=== PATIENT | male | born 1955 | race Caucasian/White ===

== ENCOUNTER 2021-11-25 07:49 | Outpatient (CLI) | payer MEDICARE, SELFPAY ==
--- NOTE | 2021-11-25 08:01 | ECG_ITS ---
Measurements Intervals [place] Rate: 65 P: -12 WA: 157 QRS: 5 QRSD: 106 T: 41 QT: 394 QTc: 411 Interpretive Statements SINUS RHYTHM LOW QRS VOLTAGE IN PRECORDIAL LEADS [QRS DEFLECTION < 1.0 mV IN CHEST LEADS] POSSIBLE RIGHT VENTRICULAR CONDUCTION DELAY [RSR (QR) IN V1/V2] NO PREVIOUS ECG AVAILABLE FOR COMPARISON Electronically Signed On 11-25-2021 18:16:51 CDT by Nicole Rodriguez M.D.
== END 2021-11-25 07:50 | disposition home or self-care (01) ==
LOC: ANHSURGERY 07:54
PROVIDERS: Visit Provider Urology
DX: Z01.810 Encounter for preprocedural cardiovascular examination (principal); I10 Essential (primary) hypertension
CPT/HCPCS: 93005

== ENCOUNTER 2021-11-26 01:26 | Day surgery (SDC) | payer MEDICARE, SELFPAY ==
--- NOTE | 2021-11-23 12:35 | PC.NURSE ---
Report to the Outpatient Waiting Room, entrance under the green pavilion located off [facility], at time _0730 on date __11/26/21 . OR Time: _929 . - You and your visitor will be asked a series of questions to screen for COVID 19 for your protection. - Only one visitor is allowed at this time. - The patient visitor is requested to leave or wait in car when not with patient. - A mask is required within the hospital. Patients may have clear liquids (water, carbonated beverages, clear teas, apple juice) until 3 hours prior to surgery with a maximum of 20 ounces. - No food from midnight until time of surgery - Infants may have breast milk until 4 hours before surgery, infant formula 6 hours prior to surgery. - Children will be allowed to drink immediately following surgery. If applicable, please bring a bottle or sippy cup to assist with drinking. Juice, water, soda, and popsicles are readily available. For infants on formula, please bring formula the day of surgery. Pacifiers are allowed. Take the following medications with a SIP of water the morning of surgery: __CARVEDILOL Medications to discontinue per physician ___PLAVIX/ASPIRIN 7 DAYS PRE OP. ALL VITAMINS 3 DAYS PRE OP Date to take last dosePATIENT STATES PLAVIX AND ASPIRIN__11/19/21. VITAMIN 11/23/21 Please no make-up, nail bulgar[place], hairspray, perfume, deodorant, or body powder the day of surgery. No jewelry (including any body piercings) or valuables the day of surgery, leave them at home. Please take a shower or bath the night before, or the morning of, surgery with an antibacterial soap. Wear comfortable, loose fitting clothing. Children are encouraged to wear pajamas. - Jewelry must be removed prior to entering the operating room. Rings and piercings that are not removed may be cut off. - The hospital will not accept responsibility for valuables. - Please leave all valuables, including medications, at home the day of surgery. If you are going home after surgery, a licensed otr flatbed driver must drive you home. - NO public transportation without another adult. - We recommend that an adult stay with you for 24 hours following discharge. - We also recommend that you do not drive, make important decision, drink alcoholic beverages, or take any drugs that were not prescribed by your health care provider for at least 24 hours after your discharge time. For Pediatric surgeries, we recommend two adults accompany the child home (only one inside the building at this time). Follow any additional instructions given to you from your surgeon. If you or anyone in your household have experienced Covid symptoms in the past week, please notify your surgeon or the nurse liaison at the phone number below for possible testing. Telephone instructions given to PATIENT and asked if any additional questions and then verbalized understanding. Patient advised to call surgeon office or pre surgery nurse liaison [phone] if any additional questions.
[2021-11-23 12:42] VITALS: BMI 37.5
--- NOTE | 2021-11-25 13:55 | WPDANESEPPF ---
Anes - Initial Pre Proc Eval Procedure: Operation Date: 11/26/21 09:00 Proposed Procedures p Right Spermatocelectomy - Michael Baca MD Date/Time: 11/25/21 13:55 Surgeon: Michael Baca MD Pre Op Diagnosis: right spermatocele Patient Data Age: 66 Gender: M Height: 1.85 m Weight: 129.3 kg Allergies Allergy/AdvReac Type Severity Reaction Status Date / Time No Known Allergies Allergy Verified 11/23/21 12:22 Home Medications Medication Instructions Recorded Confirmed Type aspirin 81 mg tablet,delayed 81 mg PO DAILY 04/02/19 11/23/21 History release (Adult Low Dose Aspirin) atorvastatin 40 mg tablet 40 mg PO DAILY 04/02/19 11/23/21 History carvedilol 3.125 mg tablet 3.125 mg PO BID 04/02/19 11/23/21 History lisinopril 5 mg tablet 5 mg PO DAILY 04/02/19 11/23/21 History clopidogrel 75 mg tablet (Plavix) 75 mg PO DAILY #30 tabs 03/25/21 11/23/21 Rx acetaminophen 500 mg tablet 1,000 mg PO BID PRN Pain 11/23/21 11/23/21 History pyridoxine (vitamin B6) 100 mg 100 mg PO DAILY 11/23/21 11/23/21 History tablet sildenafil (pulm.hypertension) 20 20 mg PO PRN PRN Erectile 11/23/21 11/23/21 History mg tablet Dysfunction Patient hx anesthesia problems: none Family hx anesthesia problems: none Results Review: All pre-operative results and documents have been reviewed as part of the pre-operative evaluation. [facility] Past Medical History Medical History (Updated 11/25/21 @ 13:56 by Leighton Starkey DO) Coronary artery disease involving [place] coronary artery of [place] heart Essential (primary) hypertension History of heart attack PMR (polymyalgia rheumatica) Surgical History Surgical History (Updated 11/25/21 @ 13:56 by Leighton Starkey DO) History of heart artery stent x2, 2014 Family History Family History Father Hypertension, Onset Age: 92 Family history of arthritis, Onset Age: 92 Family history of hearing loss, Onset Age: 92 Mother Hypertension, Onset Age: 92 Cerebrovascular accident, Onset Age: 92 Family history of arthritis, Onset Age: 92 Family history of Alzheimer's disease, Onset Age: 92 Family history of hearing loss, Onset Age: 92 Sibling Family history of malignant neoplasm of kidney, Onset Age: 70 Social History Social History Smoking status: Never smoker Alcohol intake: current Drinks per week: 6 Living arrangements: with family Spiritual care concerns: No Anes - Eval Final PreProcedure Day of Procedure 11/25/21 13:55 Patient weight: obese Heart: regular rate and rhythm Lungs: clear to auscultation Airway: Mallampati scale class II Neurological: alert and oriented Last oral intake: >/= 8 hours ASA classification: III Emergent: no Anesthetic plan: proceed Anesthesia type and monitoring: general LMA and standard monitoring Results Review: All pre-operative results and documents have been reviewed as part of the pre-operative evaluation. Informed Consent: The patient's anesthetic plan and its attendant risks and benefits were discussed with the patient/family/POA. Questions were solicited and answers provided to the satisfaction of the patient/family/POA.
[2021-11-26] VITALS (9 sets, daily range): BP systolic 144–173; BP diastolic 78–97; PULSE 57–74; RESP 12–16; TEMP 36.1–36.9; O2SAT 97–100
--- NOTE | 2021-11-26 06:48 | WPDHPUPDATE1 ---
History and Physical Update Update Date/Time: 11/26/21 06:48 History and Physical has been reviewed, including an updated exam of the patient. There are NO changes in the patient's condition. Risks, benefits, and alternatives have been discussed and questions answered. Patient agrees to proceed with procedure.
[2021-11-26] MEDS: LACTATED RINGERS 1,000 ML 30 ML IV CONT (08:14)
--- NOTE | 2021-11-26 10:07 | W.PM.PROC2 ---
Procedure Note - Detailed Date of Procedure 11/26/21 Pre-op Diagnosis Right spermatocele Post-op Diagnosis Same Procedure Performed Right spermatocelectomy Surgeon Michael Baca MD Description of Procedure The patient was brought to the operative suite where he was prepped and draped in routine sterile fashion while in a supine position after the uneventful induction of a general LMA anesthetic. An incision was made in the median raphe of the scrotum and dissection was carried into the right tunica vaginalis. There is no appreciable hydrocele but a large right spermatocele arising from the epididymis. This spermatocele is dissected from the spermatic cord and testicle to its origin from the epididymis. It is transected at its origin with care taken to avoid any injury to the testicle or epididymis. Care was taken to avoid compromise to vessels in the spermatic cord. The testicle was examined and found to be both visibly and palpably normal. The testicle was restore returned to an orthotopic positioned. The dartos muscle was closed with a running 4-0 chromic and the skin was likewise closed with a running 4-0 chromic. Estimated blood loss throughout this procedure was 10cc. Patient tolerated the procedure well and was taken to the recovery room in good condition. Packing No Pathology None sent Complications No immediate complications Condition Stable Disposition PACU
[2021-11-26] MEDS: fentaNYL CITRATE INJ (*CRX) 100 MCG/2 ML VIAL 25 MCG IV PUSH ×4 (10:46→10:56)
[2021-11-26] MEDS: oxyCODONE HCL (*CRX) 5 MG TAB IR PO (11:34)
--- NOTE | 2021-11-26 12:26 | SUR.PHASEII ---
1210- Spoke with Dr. Baca regarding patient's plavix & ASA. Dr. Baca ordered patient to hold ASA until tomorrow 11/27/21/ and to hold plavix until Tuesday11/30/21. Attempted to call patient but he did not answer, voicemail was left.
== END 2021-11-26 12:10 | disposition home or self-care (01) ==
PROVIDERS: Visit Provider Urology
PROC: (CPT 54840; principal; 2021-11-26 09:00)
DX: N43.41 Spermatocele of epididymis, single (principal); N52.01 Erectile dysfunction due to arterial insufficiency; Z79.82 Long term (current) use of aspirin; I25.10 Atherosclerotic heart disease of native coronary artery without angina pectoris; I10 Essential (primary) hypertension; I25.2 Old myocardial infarction; M35.3 Polymyalgia rheumatica; E66.9 Obesity, unspecified; Z68.37 Body mass index [BMI] 37.0-37.9, adult
CPT/HCPCS: 54840; 88304; 93005; A9270; J1100; J2405; J2704; J3010; J7120

== ENCOUNTER 2022-03-22 11:48 | Outpatient (CLI) | payer MEDICARE, SELFPAY ==
[2022-03-22 19:31] LABS: Erythrocyte Sedimentation Rate 7 mm/hr (0-20)
[2022-03-25 21:19] LABS: CRP, High Sensitivity 2.8 mg/L (***)
== END 2022-03-22 11:49 | disposition home or self-care (01) ==
LOC: ANHGOSHLAB 11:52
PROVIDERS: Visit Provider Family Medicine
DX: M19.90 Unspecified osteoarthritis, unspecified site (principal)
CPT/HCPCS: 36415; 85652; 86141

== ENCOUNTER 2022-09-28 08:04 | Outpatient (CLI) | payer MEDICARE, SELFPAY ==
[2022-09-28 16:53] LABS: Alanine Aminotransferase 30 U/L (6-50); Albumin Level 3.9 g/dL (3.5-5.1); Alkaline Phosphatase 40 U/L (38-126); Anion Gap 5 mmol/L (8-16); Aspartate Amino Transferase 64 U/L (17-59); Bilirubin,Total 0.6 mg/dL (0.2-1.3); Blood Urea Nitrogen 17 mg/dL (9-20); Calcium 8.8 mg/dL (8.4-10.2); Carbon Dioxide 32 mmol/L (22-30); Chloride 101 mmol/L (98-107); Cholesterol 108 mg/dL (0-200); Estimated Glomerular Filt Rate > 60; Glucose 104 mg/dL (65-110); HDL Direct 40 mg/dL; Potassium 4.5 mmol/L (3.4-5.0); Sodium 138 mmol/L (137-145); Triglycerides 59 mg/dL (<150)
[2022-09-28 16:55] LABS: Basophils Absolute Auto 0.1 K/mm3 (0.0-0.1); Basophils Percent Auto 0.7 % (0.2-1.2); Eosinophils Absolute Auto 0.3 K/mm3 (0-0.3); Eosinophils Percent Auto 4.6 % (0-4.4); Hematocrit 44.9 % (42.0-52.0); Hemoglobin 14.3 g/dL (14.0-18.0); Immature Granulocyte Absolute 0.02 K/mm3 (0.00-0.031); Immature Granulocyte Percent A 0.3 % (0-0.5); Lymphocytes Absolute Auto 1.43 K/mm3 (0.9-3.2); Lymphocytes Percent Auto 20.4 % (18.3-44.2); Mean Corpuscular HGB Conc 31.8 g/dl (32-36); Mean Corpuscular Volume 100.4 fl (80-100); Mean Platelet Volume 9.9 fl (7.4-10.4); Monocytes Absolute Auto 0.6 K/mm3 (0.1-0.6); Monocytes Percent Auto 8.8 % (2.6-8.5); Neutrophils Absolute Auto 4.6 K/mm3 (1.3-6.7); Neutrophils Percent Auto 65.2 % (45.5-73.1); Platelet Count Result 305 k/mm3 (150-375); Red Blood Count 4.47 M/mm3 (4.6-6.20); Red Cell Distribution Width 13.6 % (11.5-14.5)
[2022-09-28 17:05] LABS: LDL Cholesterol Direct 53 mg/dL
[2022-09-28 17:24] LABS: Prostate Specific Antigen 0.5 ng/mL (< OR = 4.0)
[2022-09-28 18:49] LABS: Hemoglobin A1C 5.4 % (<5.7)
== END 2022-09-28 08:05 | disposition home or self-care (01) ==
PROVIDERS: Referring Provider Specialist; Visit Provider Family Medicine
DX: I10 Essential (primary) hypertension (principal); R79.89 Other specified abnormal findings of blood chemistry; Z13.220 Encounter for screening for lipoid disorders; Z12.5 Encounter for screening for malignant neoplasm of prostate; R73.03 Prediabetes
CPT/HCPCS: 36415; 80048; 80061; 80076; 83036; 84153; 84443; 85025; G0103

== ENCOUNTER 2022-10-06 14:28 | Outpatient (CLI) | payer MEDICARE, SELFPAY ==
--- NOTE | ~2022-10-06 | CT_ITS ---
Non-contrast CT scan of the Abdomen and Pelvis Clinical indication: Left ureteral stone Technique: 2.5 mm axial scans were obtained through the abdomen and pelvis without intravenous or or al contrast. Dose reduction technique was used on this scan by utilizing automated exposure control a nd iterative reconstruction technique. The dose-length product (DLP) was 1087.89 mGy-cm. Findings: Images through the lung bases reveal minimal right basilar atelectatic change. 4 mm mid left ureteral stone present (axial image 162), without hydronephrosis. No right renal or rig ht ureteral stone. No right hydronephrosis. The liver, spleen, pancreas, and adrenals appear normal. Cholecystectomy clips are present. There are atherosclerotic calcifications of the aorta. There is no evidence of bowel obstruction. Images through the pelvis were performed. There is no evidence of ascites or lymphadenopathy. Urinary bladder unremarkable. Prostate gland and seminal vesicles are unremarkable. Impression: 4 mm mid left ureteral stone. No hydronephrosis. Reviewed, dictated and finalized at [facility]. Impression: 4 mm mid left ureteral stone. No hydronephrosis.
== END 2022-10-06 14:29 | disposition home or self-care (01) ==
PROVIDERS: PCP Family Medicine; Visit Provider Urology
DX: N20.1 Calculus of ureter (principal)
CPT/HCPCS: 74176

== ENCOUNTER 2022-10-14 00:42 | Day surgery (SDC) | payer MEDICARE, SELFPAY ==
--- NOTE | 2022-10-11 07:43 | PM.HPGS ---
History of Present Illness History of Present Illness Consent: Risks, benefits, and alternatives have been discussed and questions answered. Patient agrees to proceed with procedure. Chief complaint: left ureteral stone Narrative: Sebastian Garcia is a 67 year old male on dual antiplatelet therapy for cardiac reasons who is had intermittent left flank pain and hematuria. Imaging demonstrates a small 2-3 mm left renal pelvic stone. He continues to have pain and persistence of the stone. After discussion of options he is elected to proceed with left ureteroscopy with stone extraction. He is aware the risk of the procedure including, but not limited to, hematuria, need for additional procedures, placement of a stent and ureteral injury. Review of Systems Review of Systems: All systems reviewed & are unremarkable except as noted in HPI and below PMFSH Past Medical History Medical History BMI 38.0-38.9,adult Coronary artery disease involving [place] coronary artery of [place] heart Essential (primary) hypertension History of heart attack Joint inflammation Kidney stone PMR (polymyalgia rheumatica) Surgical History Surgical History History of heart artery stent x2, 2015 Family History Family History Father Hypertension, Onset Age: 92 Family history of arthritis, Onset Age: 92 Family history of hearing loss, Onset Age: 92 Mother Hypertension, Onset Age: 92 Cerebrovascular accident, Onset Age: 92 Family history of arthritis, Onset Age: 92 Family history of Alzheimer's disease, Onset Age: 92 Family history of hearing loss, Onset Age: 92 Sibling Family history of malignant neoplasm of kidney, Onset Age: 70 Social History Social History Smoking status: Never smoker Alcohol intake: current Drinks per week: 6 Substance use: never Lack of Transportation: No Lack of Food: Never True Current Housing: I Have Housing Concerned About Future Housing: No Difficulty Paying Gas/Electric Bills: No Difficulty Paying for Meds: No Currently Unemployed: No Education: Associate Degree Living arrangements: with family Spiritual care concerns: No Meds Home Medications and Allergies Home Medications Medication Instructions Recorded Confirmed Type aspirin 81 mg tablet,delayed 81 mg PO DAILY 04/02/19 08/02/22 History release (Adult Low Dose Aspirin) atorvastatin 40 mg tablet 40 mg PO DAILY 04/02/19 08/02/22 History carvedilol 3.125 mg tablet 3.125 mg PO BID 04/02/19 08/02/22 History clopidogrel 75 mg tablet (Plavix) 75 mg PO DAILY #30 tabs 03/25/21 08/02/22 Rx acetaminophen 500 mg tablet 1,000 mg PO BID PRN Pain 11/23/21 08/02/22 History pyridoxine (vitamin B6) 100 mg 100 mg PO DAILY 11/23/21 08/02/22 History tablet sildenafil (pulm.hypertension) 20 20 mg PO PRN PRN Erectile 11/23/21 08/02/22 History mg tablet Dysfunction losartan 50 mg tablet 50 mg PO DAILY #30 tabs 08/02/22 08/02/22 Rx Allergies Allergy/AdvReac Type Severity Reaction Status Date / Time No Known Allergies Allergy Verified 08/02/22 11:03 Exam Const: General: no acute distress Resp: Effort & Inspection: normal respiratory effort GI: Inspection: non-distended GI Palp: No abdominal tenderness and No Guarding due to palpation present (GI) Auscultation: normal bowel sounds Assessment and Plan Assessment and plan (1) Kidney stone: Code(s): N20.0 - Calculus of kidney Status: Acute Assessment and Plan: Cystoscopy, left ureteroscopy with stone extraction, possible laser lithotripsy, retrograde pyelography and stent placement
--- NOTE | 2022-10-11 09:40 | PC.NURSE ---
Report to the Outpatient Waiting Room, entrance under the green pavilion located off [facility], at time _1015 on date __10/14/22 . Planned Procedure Time: 1215 . Time changes happen often and if your time is changed the preop area will call you the afternoon before. - You and your visitor will be asked to self-screen and do not enter if you have any COVID symptoms. - A mask is optional within the hospital at this time. Patients may have clear liquids (water, carbonated beverages, clear teas, apple juice) until 3 hours prior to surgery with a maximum of 20 ounces. - No food from midnight until time of surgery - Infants may have breast milk until 4 hours before surgery, infant formula 6 hours prior to surgery. - Children will be allowed to drink immediately following surgery. If applicable, please bring a bottle or sippy cup to assist with drinking. Juice, water, soda, and popsicles are readily available. For infants on formula, please bring formula the day of surgery. Pacifiers are allowed. Take the following medications with a SIP of water the morning of surgery: ____CARVEDILOL DO NOT STOP ANY OF YOUR OTHER PRESCRIPTION MEDICATIONS PRIOR TO SURGERY ?EXCEPT THE FOLLOWING Medications to discontinue per physician PT STATES PER DR MOMIN CONT. ASPIRIN AND PLAVIX .INST.NOT TO TAKE MORNING OF SURGERY. ALL VITAMINS 3 DAYS PRE OP.LAST DOSE 10/11/22 Please no make-up, nail american, hairspray, perfume, deodorant, or body powder the day of surgery. No jewelry (including any body piercings) or valuables the day of surgery, leave them at home. Please take a shower or bath the night before, or the morning of, surgery with an antibacterial soap. Wear comfortable, loose fitting clothing. Children are encouraged to wear pajamas. - Jewelry must be removed prior to entering the operating room. Rings and piercings that are not removed may be cut off. - The hospital will not accept responsibility for valuables. - Please leave all valuables, including medications, at home the day of surgery. If you are going home after surgery, a licensed compactor driver must drive you home. - NO public transportation without another adult if you receive anesthesia. - We recommend that an adult stay with you for 24 hours following discharge. - We also recommend that you do not drive, make important decision, drink alcoholic beverages, or take any drugs that were not prescribed by your health care provider for at least 24 hours after your discharge time. For Pediatric surgeries, we recommend two adults accompany the child home. Follow any additional instructions given to you from your surgeon. If you or anyone in your household have experienced Covid symptoms in the past week, please notify your surgeon or the nurse liaison at the phone number below for possible testing. Telephone instructions given to __PATIENT and asked if any additional questions and then verbalized understanding. Patient advised to call surgeon office or pre surgery nurse liaison [phone] if any additional questions.
[2022-10-11 09:43] VITALS: BMI 37.5
[2022-10-14] VITALS (10 sets, daily range): BP systolic 135–157; BP diastolic 76–99; PULSE 61–72; RESP 14–20; TEMP 36.3–36.9; O2SAT 95–99
--- NOTE | ~2022-10-14 | XR_ITS ---
EXAMINATION: XR fluoroscopy no charge DATE: 10/14/2022 13:03 CDT INDICATION: STONE EXTRACTION . TECHNIQUE: 2 fluoroscopic images of the abdomen and pelvis were obtained during stone extraction perf ormed by the surgeon. I was not present in the operating room. Fluoroscopy exposure time was 25.3 sec onds. DAP [id number] mGym2. COMPARISON: CT abdomen and pelvis 10/06/2022 FINDINGS: Wire access accomplished to the left collecting system. Subtle calcification adjacent to the L5 verte bral body may represent the known ureteral stone. Multiple additional calcifications within the pelvi c ring, likely phleboliths. IMPRESSION: Fluoroscopic documentation of stone extraction. Please refer to the operative note for complete proce dural details . Reviewed, dictated and finalized at location [facility]. IMPRESSION: Fluoroscopic documentation of stone extraction. Please refer to the operative n ote for complete procedural details .
--- NOTE | 2022-10-14 06:36 | WPDHPUPDATE1 ---
History and Physical Update Update Date/Time: 10/14/22 06:36 History and Physical has been reviewed, including an updated exam of the patient. There are NO changes in the patient's condition. Risks, benefits, and alternatives have been discussed and questions answered. Patient agrees to proceed with procedure.
[2022-10-14] MEDS: LACTATED RINGERS 1,000 ML 30 ML IV CONT (11:05)
--- NOTE | 2022-10-14 11:48 | WPDANESEPPF ---
Anes - Initial Pre Proc Eval Procedure: Operation Date: 10/14/22 12:15 Proposed Procedures p Cystoscopy, Left Ureteroscopy, Possible Left Retrograde Pyelogram, Possible Left Stone Extraction, Possible Left Stent Placement, Possible Holmium Laser Procedure - Michael Baca MD Date/Time: 10/14/22 11:48 Surgeon: Michael Baca MD Pre Op Diagnosis: left ureteral stone Patient Data Age: 67 Gender: M Height: 1.85 m Weight: 129.3 kg Allergies Allergy/AdvReac Type Severity Reaction Status Date / Time No Known Allergies Allergy Verified 10/14/22 10:43 Home Medications Medication Instructions Recorded Confirmed Type aspirin 81 mg tablet,delayed 81 mg PO DAILY 04/02/19 10/14/22 History release (Adult Low Dose Aspirin) atorvastatin 40 mg tablet 40 mg PO DAILY 04/02/19 10/14/22 History carvedilol 3.125 mg tablet 3.125 mg PO BID 04/02/19 10/14/22 History clopidogrel 75 mg tablet (Plavix) 75 mg PO DAILY #30 tabs 03/25/21 10/14/22 Rx acetaminophen 500 mg tablet 1,000 mg PO BID PRN Pain 11/23/21 10/14/22 History sildenafil (pulm.hypertension) 20 20 mg PO PRN PRN Erectile 11/23/21 10/11/22 History mg tablet Dysfunction losartan 50 mg tablet 50 mg PO DAILY #30 tabs 08/02/22 10/14/22 Rx turmeric 400 mg capsule 400 mg PO DAILY 10/11/22 10/14/22 History pyridoxine (vitamin B6) 500 mg 500 mg PO DAILY 10/14/22 10/14/22 History capsule Patient hx anesthesia problems: none Family hx anesthesia problems: none Results Review: All pre-operative results and documents have been reviewed as part of the pre-operative evaluation. [facility] Past Medical History Medical History BMI 38.0-38.9,adult Coronary artery disease involving [place] coronary artery of [place] heart Elevated liver function tests Essential (primary) hypertension History of heart attack Joint inflammation Kidney stone PMR (polymyalgia rheumatica) Surgical History Surgical History History of heart artery stent x2, 2015 Family History Family History Father Hypertension, Onset Age: 92 Family history of arthritis, Onset Age: 92 Family history of hearing loss, Onset Age: 92 Mother Hypertension, Onset Age: 92 Cerebrovascular accident, Onset Age: 92 Family history of arthritis, Onset Age: 92 Family history of Alzheimer's disease, Onset Age: 92 Family history of hearing loss, Onset Age: 92 Sibling Family history of malignant neoplasm of kidney, Onset Age: 70 Social History Social History Smoking status: Never smoker Alcohol intake: current Drinks per week: 8 Substance use: never Lack of Transportation: No Lack of Food: Never True Current Housing: I Have Housing Concerned About Future Housing: No Difficulty Paying Gas/Electric Bills: No Difficulty Paying for Meds: No Currently Unemployed: No Education: Associate Degree Living arrangements: with family Spiritual care concerns: No Anes - Eval Final PreProcedure Day of Procedure 10/14/22 11:48 Patient weight: obese Heart: regular rate and rhythm Lungs: decreased breath sounds Airway: Mallampati scale class II Neurological: alert and oriented Last oral intake: >/= 8 hours ASA classification: III Emergent: no Anesthetic plan: proceed Anesthesia type and monitoring: general LMA and standard monitoring Results Review: All pre-operative results and documents have been reviewed as part of the pre-operative evaluation. Informed Consent: The patient's anesthetic plan and its attendant risks and benefits were discussed with the patient/family/POA. Questions were solicited and answers provided to the satisfaction of the patient/family/POA.
[2022-10-14] MEDS: ceFAZolin 3 GM/D5W 100 ML 100 ML IVPB (13:03)
[2022-10-14] MEDS: KETOROLAC 15 MG/ML VIAL (*BKC) IV PUSH (13:31)
--- NOTE | 2022-10-14 13:41 | W.PM.PROC2 ---
Procedure Note - Detailed Date of Procedure 10/14/22 Pre-op Diagnosis Left ureteral stone Post-op Diagnosis Same Procedure Performed Cystoscopy, left ureteroscopy with stone extraction Surgeon Michael Baca MD Anesthesia General Description of Procedure patient is brought to the operative suite was prepped draped in routine sterile fashion while in dorsal lithotomy position after the uneventful induction of a general anesthetic. Cystoscopy is undertaken with the 19 F rigid cystoscope. He has no urethral stricture and only moderate lateral lobe hyperplasia of the prostate with approximately a 2 cm prostatic urethra. Bladder was trabeculated but there was no intravesical foreign body or neoplasm. A 0.035 in glidewire was advanced in the left renal pelvis under fluoroscopy. Distal ureter was dilated with an 8 F 10 F dilator. Short tapered ureteral scope is used to inspect the distal left ureter. There was no stones or other pathology with ureteroscopy to the iliac vessels. I replaced that scope with a 7.5 F flexible ureteral scope. I immediately identified is 4 mm stone in the proximal left ureter. It was extracted with a 1.9 F disposable stone basket with ease. Because of the ease of this manipulation I opted not to place a ureteral stent. Scopes and wires removed he was taken to the recovery room good condition
== END 2022-10-14 14:55 | disposition home or self-care (01) ==
PROVIDERS: PCP Family Medicine; Visit Provider Urology
PROC: (CPT 52352; principal; 2022-10-14 12:15)
DX: N20.1 Calculus of ureter (principal); I25.10 Atherosclerotic heart disease of native coronary artery without angina pectoris; I10 Essential (primary) hypertension; I25.2 Old myocardial infarction; M35.3 Polymyalgia rheumatica; Z95.5 Presence of coronary angioplasty implant and graft; E66.9 Obesity, unspecified; Z68.38 Body mass index [BMI] 38.0-38.9, adult; Z79.82 Long term (current) use of aspirin; Z79.02 Long term (current) use of antithrombotics/antiplatelets
CPT/HCPCS: 52352; 82365; 88300; 99199; C1769; J0690; J1100; J1885; J2250; J2405; J2704; J3010; J7120

== ENCOUNTER 2023-01-03 16:57 | Emergency (ER) | payer MEDICARE, SELFPAY ==
[2023-01-03 17:18] VITALS: BP 150/80; PULSE 75; RESP 18; TEMP 36.6; O2SAT 97
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
== END 2023-01-03 19:14 | disposition left against medical advice (07) ==
PROVIDERS: PCP Family Medicine
DX: S09.90XA Unspecified injury of head, initial encounter (principal)
CPT/HCPCS: 99199

== ENCOUNTER 2023-01-04 09:02 | Emergency (ER) | payer OTHER, MEDICARE, SELFPAY ==
--- NOTE | ~2023-01-04 | CT_ITS ---
Non-contrast Head CT History: Head injury Technique: Axial non-contrast imaging of the brain was performed. Dose reduction technique was used on this scan by utilizing automated exposure control and iterative reconstruction technique. The dose -length product (DLP) was 681.00 mGy-cm. Findings: There is no evidence of intracranial hemorrhage, mass lesion, or acute infarct. Brain par enchyma appears normal. The ventricles and subarachnoid spaces are normal in size. The calvarium ap pears normal. There is mild ethmoid sinus disease. The remaining visualized paranasal sinuses and mas toid air cells are clear. Impression: No intracranial abnormality seen. Reviewed, dictated and finalized at location . Impression: No intracranial abnormality seen.
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
[2023-01-04 09:15] VITALS: BP 117/89; PULSE 70; RESP 16; TEMP 36.7; O2SAT 97
[2023-01-04 09:34] VITALS: BP 152/82; PULSE 65; RESP 16; TEMP 36.6; O2SAT 100
[2023-01-04 10:03] VITALS: BP 138/80; PULSE 80; RESP 16; O2SAT 99
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
[2023-01-04 10:32] LABS: Estimated CRCL calculation 116 ml/min; Estimated Glomerular Filt Rate > 60
[2023-01-04 11:02] LABS: Basophils Percent Auto 0.4 % (0.2-1.2); Eosinophils Absolute Auto 0.3 K/mm3 (0-0.3); Hematocrit 41.3 % (42.0-52.0); Hemoglobin 13.5 g/dL (14.0-18.0); Immature Granulocyte Absolute 0.02 K/mm3 (0.00-0.031); Immature Granulocyte Percent A 0.3 % (0-0.5); Lymphocytes Absolute Auto 1.47 K/mm3 (0.9-3.2); Lymphocytes Percent Auto 20.2 % (18.3-44.2); Mean Corpuscular HGB Conc 32.7 g/dl (32-36); Mean Corpuscular Hemoglobin 31.9 pg (26-34); Mean Corpuscular Volume 97.6 fl (80-100); Mean Platelet Volume 9.3 fl (7.4-10.4); Monocytes Absolute Auto 0.7 K/mm3 (0.1-0.6); Monocytes Percent Auto 9.9 % (2.6-8.5); Neutrophils Absolute Auto 4.8 K/mm3 (1.3-6.7); Neutrophils Percent Auto 65.2 % (45.5-73.1); Platelet Count Result 255 k/mm3 (150-375); Red Blood Count 4.23 M/mm3 (4.6-6.20); White Blood Count 7.3 K/mm3 (4.5-10.0)
[2023-01-04 11:05] VITALS: BP 140/82; PULSE 81; RESP 18; TEMP 36.8; O2SAT 100
[2023-01-04 11:12] LABS: Appearance Urine Clear (Clear); Bilirubin Urine Negative (Negative); Blood Urine Negative (Negative); Color Urine Yellow (Yellow); Glucose Urine UA Negative (Negative); Ketones Urine Negative (Negative); Leukocyte Esterase Ur Negative LEU/UL (Negative); Nitrate Urine Negative (Negative); Protein Urine Negative (Negative); Urobilinogen Urine 0.2 mg/dL (<2.0); pH Urine 6.5 (5.0-9.0)
[2023-01-04 11:13] LABS: Specific Grav Ur 1.068 (1.001-1.035)
[2023-01-04 11:14] LABS: INR 0.9
[2023-01-04 11:14] LABS: Add Urine Microscopic? NO
[2023-01-04 11:15] LABS: Partial Thromboplastin Time 26.6 SECONDS (22.3-36.8)
[2023-01-04 11:17] LABS: Alanine Aminotransferase 29 U/L (6-50); Alkaline Phosphatase 39 U/L (38-126); Anion Gap 6 mmol/L (8-16); Aspartate Amino Transferase 29 U/L (17-59); Bilirubin,Total 0.8 mg/dL (0.2-1.3); Blood Urea Nitrogen 17 mg/dL (9-20); Calcium 8.5 mg/dL (8.4-10.2); Carbon Dioxide 29 mmol/L (22-30); Chloride 100 mmol/L (98-107); Estimated CRCL calculation 116 ml/min; Estimated Glomerular Filt Rate > 60; Glucose 111 mg/dL (65-110); Lactic Acid Reflex 0.9 mmol/L (0.7-2.0); Potassium 4.1 mmol/L (3.4-5.0); Sodium 135 mmol/L (137-145)
== END 2023-01-04 11:44 | disposition home or self-care (01) ==
PROVIDERS: Emergency Provider Emergency Medicine; PCP Family Medicine
DX: S80.12XA Contusion of left lower leg, initial encounter (principal); S30.1XXA Contusion of abdominal wall, initial encounter; S09.90XA Unspecified injury of head, initial encounter; I25.10 Atherosclerotic heart disease of native coronary artery without angina pectoris; I10 Essential (primary) hypertension; I25.2 Old myocardial infarction; Z79.01 Long term (current) use of anticoagulants; V43.52XA Car driver injured in collision with other type car in traffic accident, initial encounter; Y92.488 Other paved roadways as the place of occurrence of the external cause
CPT/HCPCS: 70450; 73590; 74177; 80053; 81003; 83605; 85025; 85610; 85730; 99284; Q9967

== ENCOUNTER 2023-08-03 15:58 | Outpatient (CLI) | payer MEDICARE, SELFPAY ==
--- NOTE | ~2023-08-03 | XR_ITS ---
EXAMINATION: XR abdomen/kub 1V DATE: 08/03/2023 16:09 INDICATION: Kidney stone. TECHNIQUE: A supine view of the abdomen on 2 radiographs was obtained. COMPARISON: CT abdomen and pelvis 01/04/2023 FINDINGS: There are no dilated loops of bowel. There are phleboliths in left pelvis. There are surgic al clips in right upper quadrant. IMPRESSION: 1. No visible urolithiasis. Reviewed, dictated and finalized at location E. IMPRESSION: 1. No visible urolithiasis.
== END 2023-08-03 15:59 ==
PROVIDERS: PCP Family Medicine; Visit Provider Urology
DX: N20.1 Calculus of ureter (principal)
CPT/HCPCS: 74018

== ENCOUNTER 2023-08-12 10:42 | Outpatient (CLI) | payer MEDICARE, SELFPAY ==
[2023-08-12 13:59] LABS: Hematocrit 46.6 % (42.0-52.0); Mean Corpuscular HGB Conc 32.2 g/dl (32-36); Mean Corpuscular Hemoglobin 32.4 pg (26-34); Mean Corpuscular Volume 100.6 fl (80-100); Mean Platelet Volume 9.9 fl (7.4-10.4); Platelet Count Result 290 k/mm3 (150-375); Red Blood Count 4.63 M/mm3 (4.6-6.20); Red Cell Distribution Width 13.3 % (11.5-14.5); White Blood Count 7.3 K/mm3 (4.5-10.0)
[2023-08-12 14:05] LABS: Alanine Aminotransferase 34 U/L (6-50); Albumin Level 4.4 g/dL (3.5-5.1); Alkaline Phosphatase 48 U/L (38-126); Anion Gap 6 mmol/L (4-12); Aspartate Amino Transferase 101 U/L (17-59); Bilirubin,Total 0.7 mg/dL (0.2-1.3); Blood Urea Nitrogen 20 mg/dL (9-20); Calcium 9.6 mg/dL (8.4-10.2); Carbon Dioxide 30 mmol/L (22-30); Chloride 105 mmol/L (98-107); Cholesterol 115 mg/dL (0-200); Estimated Glomerular Filt Rate > 60; Glucose 103 mg/dL (65-110); HDL Direct 46 mg/dL; Potassium 4.5 mmol/L (3.4-5.0); Sodium 141 mmol/L (137-145); Triglycerides 59 mg/dL (<150)
[2023-08-12 14:06] LABS: Uric Acid 4.9 mg/dL (3.5-8.5)
[2023-08-12 14:16] LABS: LDL Cholesterol Direct 56 mg/dL
[2023-08-12 14:33] LABS: Prostate Specific Antigen 0.6 ng/mL (< OR = 4.0)
== END 2023-08-12 10:43 | disposition home or self-care (01) ==
PROVIDERS: Nurse Practitioner Family; PCP Family Medicine; Visit Provider Family Medicine
DX: Z12.5 Encounter for screening for malignant neoplasm of prostate (principal); I10 Essential (primary) hypertension; R79.89 Other specified abnormal findings of blood chemistry; M79.673 Pain in unspecified foot; Z13.220 Encounter for screening for lipoid disorders
CPT/HCPCS: 36415; 80048; 80061; 80076; 84153; 84443; 84550; 85027; G0103

== ENCOUNTER 2023-08-18 14:41 | Outpatient (CLI) | payer MEDICARE, SELFPAY ==
[2023-08-18 19:20] LABS: Alanine Aminotransferase 29 U/L (6-50); Albumin Level 4.4 g/dL (3.5-5.1); Alkaline Phosphatase 46 U/L (38-126); Aspartate Amino Transferase 56 U/L (17-59); Bilirubin,Total 0.7 mg/dL (0.2-1.3)
[2023-08-18 20:41] LABS: Hepatitis B Surface Antigen Negative (Negative)
[2023-08-18 20:47] LABS: HAV RESULT Negative (Negative); Hepatitis B Core IgM Result Negative (Negative)
[2023-08-18 20:58] LABS: Hepatitis C Virus Antibody Negative (Negative)
== END 2023-08-18 14:42 | disposition home or self-care (01) ==
LOC: ANHGOSHLAB 14:43
PROVIDERS: PCP Family Medicine; Visit Provider Family Medicine
DX: R94.5 Abnormal results of liver function studies (principal); R79.89 Other specified abnormal findings of blood chemistry; Z79.899 Other long term (current) drug therapy
CPT/HCPCS: 36415; 80074; 80076; 82977

== ENCOUNTER 2024-09-18 09:07 | Outpatient (CLI) | payer MEDICARE, SELFPAY ==
--- OUTSIDE RECORDS SUMMARY | 2024-09-18 09:19 | XMS_ITS | Clinical Summary ---
Author Organization [facility] [address] Address [address] [place] [address] Care Team Providers Care Parts Counter Clerk Name Role Phone Yogi Carr MD Primary Care Provider Allergies No known active allergies Medications aspirin 81 mg tablet take 1 Tablet by oral route every day 0 0 11/14/2014 Active pyridoxine (VITAMIN B-6) 100 mg tablet Take 1 tablet (100 mg total) by mouth daily Active nitroglycerin (NITROSTAT) 0.[address] 1 tablet (0.4 mg total) under the tongue every 5 (five) minutes as needed for chest pain 25 tablet 11 04/07/2020 Active sildenafiL (VIAGRA) 25 mg tablet Take 1 tablet (25 mg total) by mouth as needed Active losartan (COZAAR) 50 mg tablet Take 1 tablet (50 mg total) by mouth daily 90 tablet 3 04/05/2023 Active carvediloL (COREG) 6.25 mg tablet Take 1 tablet (6.25 mg total) by mouth 2 (two) times a day with meals 180 tablet 3 10/06/2023 Active glucosamine HCl 1,500 mg tablet Take by mouth Active clopidogreL (PLAVIX) 75 mg tablet TAKE 1 TABLET(75 MG) BY MOUTH DAILY 90 tablet 2 06/15/2024 Active atorvastatin (LIPITOR) 40 mg tablet TAKE 1 TABLET(40 MG) BY MOUTH DAILY 90 tablet 3 07/09/2024 Active Active Problems Problem Noted Date Diagnosed Date Body mass index 40.0-44.9, adult (CMS/HCC) 10/05 Morbid (severe) obesity due to excess calories 1 06/02/2021 History of coronary artery stent placement 05/19 Dyslipidemia 11/19/2014 Overview (07/23/2016): Mixed dyslipidemia Myocardial infarction 11/19/2014 Overview (07/23/2016): ST elevation myocardial infarction (STEMI) of anterior wall, subsequent episode of care Chronic coronary artery disease 11/19/2014 Overview (07/23/2016): CAD (coronary artery disease) Benign hypertension 11/19/2014 Overview (07/23/2016): HTN (hypertension), benign Cardiac arrest due to underlying cardiac conditi on 11/19/2014 Overview (07/23/2016): Cardiac arrest due to underlying cardiac condition Generalized ischemic myocardial dysfunction 07/2014 Overview (07/23/2016): Ischemic cardiomyopathy Family History Medical History Relation Name Comments Heart attack Father Myocardial infa rction; Hyperlipidemia Father Hyperlipidemi a; Other Father Pacemaker; Other Mother Pacemaker; Stroke Mother Stroke; Relation Name Status Comments Father (Age 91) Mother Social History Tobacco Use Types Packs/Day Years Used Date Smoking Tobacco: Never Smokeless Tobacco: Never Tobacco Cessation:Counseling Given: Not Answered Alcohol Use Standard Drinks/Week Comments Yes 0 (1 standard drink = 0.6 oz pur e alcohol) social drinker Sex and Gender Information Value Date Recorded Sex Assigned at Not on file Legal 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 Gender Identity Male 03/17/2021 9:23 AM ORNAMENTAL MACHINE OPERATOR Sexual Orientation Straight 03/17/2021 9: 24 AM ORNAMENTAL MACHINE OPERATOR Obstetrics History Last Filed Vital Signs Vital Sign Reading Time Taken Comments Blood Pressure 122/62 04/03/2024 1:07 PM ORNAMENTAL MACHINE OPERATOR Pulse 74 04/03/2024 1:07 PM ORNAMENTAL MACHINE OPERATOR Temperature - - Respiratory Rate 15 02/19/2020 10:52 AM ORNAMENTAL MACHINE OPERATOR Oxygen Saturation 95% 04/03/2024 1:07 PM ORNAMENTAL MACHINE OPERATOR Inhaled Oxygen Concentration - - Weight 135.6 kg (299 lb) 04/03/2024 1:07 PM ORNAMENTAL MACHINE OPERATOR Height 185.4 cm (6' 1) 04/03/2024 1:07 PM ORNAMENTAL MACHINE OPERATOR Body Mass Index 39.45 04/03/2024 1:07 PM ORNAMENTAL MACHINE OPERATOR Plan of Treatment Health Maintenance Due Date Last Done Comments Colon Cancer Screening-Colonoscopy 1955 Depression Screening 1955 Hepatitis C Screening 1955 DTaP/Tdap/Td Vaccine (1 - Tdap) 1964 Hepatitis B Screening 1971 Well Visit 65+ 2018 Pneumococcal vaccine 65+ (2 of 2 - PPSV23) 07/05/2018 05/10/2018 Zoster Vaccine (3 of 3) 11/22/2018 09/27/2018, 01/25 Fall Risk Assessment 02/18/2021 02/19/2020 Influenza Vaccine (Season Ended) 2024 02/01/20 19 Insurance [facility] MEDICARE [facility] Address: [address] [address] [facility] MEDICARE [facility] MEDIC[facility] Address: [facility] [address] [place] [address] Care Teams Parts Counter Clerk Relationship Specialty Start Date End Date Yogi Carr MD PCP - General Family Medicine 04/01/22
--- OUTSIDE RECORDS SUMMARY | 2024-09-18 09:19 | XMS_ITS | Referral Summary ---
Author Organization [facility] [address] Address [address] [place] [address] Care Team Providers Care Seat Maker Name Role Phone Yogi Carr MD Primary [...] myocardial dysfunction 07/2014 Overview (07/23/2016): Ischemic cardiomyopathy Social History Tobacco Use Types Packs/Day Years Used Date Smoking Tobacco: Never Smokeless Tobacco: Never Tobacco Cessation:Counseling Given: Not Answered Alcohol Use Standard Drinks/Week Comments Yes 0 (1 standard drink = 0.6 oz pur e alcohol) social drinker Sex and Gender Information Value Date Recorded Sex Assigned at Not on file Legal Sex 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 Gender Identity Male 03/17/2021 9:23 AM VIDEOTAPE RECORDING ENGINEER Sexual Orientation Straight 03/17/2021 9: 24 AM VIDEOTAPE RECORDING ENGINEER Last Filed Vital Signs Vital Sign Reading Time Taken Comments Blood Pressure 122/62 04/03/2024 1:07 PM VIDEOTAPE RECORDING ENGINEER Pulse 74 04/03/2024 1:07 PM VIDEOTAPE RECORDING ENGINEER Temperature - - Respiratory Rate 15 02/19/2020 10:52 AM VIDEOTAPE RECORDING ENGINEER Oxygen Saturation 95% 04/03/2024 1:07 PM VIDEOTAPE RECORDING ENGINEER Inhaled Oxygen Concentration - - Weight 135.6 kg (299 lb) 04/03/2024 1:07 PM VIDEOTAPE RECORDING ENGINEER Height 185.4 cm (6' 1) 04/03/2024 1:07 PM VIDEOTAPE RECORDING ENGINEER Body Mass Index 39.45 04/03/2024 1:07 PM VIDEOTAPE RECORDING ENGINEER Plan of Treatment Not on file Insurance [facility] MEDICARE Address: [place] [address] [id number] [place] [id number] [facility] MEDICARE ADVANTAGE [facility] MEDICARE Address: [place] [address] Care Teams Seat Maker Relationship Specialty Start Date End Date Yogi Carr MD PCP - General Family Medicine 04/01/22
[2024-09-18 11:12] LABS: Hematocrit 45.8 % (42.0-52.0); Hemoglobin 14.7 g/dL (14.0-18.0); Mean Corpuscular HGB Conc 32.1 g/dl (32-36); Mean Corpuscular Hemoglobin 31.5 pg (26-34); Mean Corpuscular Volume 98.1 fl (80-100); Mean Platelet Volume 9.8 fl (7.4-10.4); Platelet Count Result 308 k/mm3 (150-375); Red Blood Count 4.67 M/mm3 (4.6-6.20); Red Cell Distribution Width 13.9 % (11.5-14.5); White Blood Count 6.4 K/mm3 (4.5-10.0)
[2024-09-18 12:54] LABS: Alanine Aminotransferase 26 U/L (6-50); Albumin Level 4.4 g/dL (3.5-5.1); Alkaline Phosphatase 39 U/L (38-126); Anion Gap 5 mmol/L (4-12); Aspartate Amino Transferase 112 U/L (17-59); Bilirubin Direct 0.1 mg/dL (0-0.3); Bilirubin,Total 0.7 mg/dL (0.2-1.3); Blood Urea Nitrogen 20 mg/dL (9-20); Calcium 9.5 mg/dL (8.4-10.2); Carbon Dioxide 30 mmol/L (22-30); Chloride 102 mmol/L (98-107); Estimated Glomerular Filt Rate > 60; Glucose 107 mg/dL (65-110); Potassium 4.3 mmol/L (3.4-5.0); Sodium 137 mmol/L (137-145); Total Protein 7.2 g/dL (6.3-8.2)
[2024-09-18 13:25] LABS: Prostate Specific Antigen 0.6 ng/mL (< OR = 4.0)
[2024-09-18 18:35] LABS: Hepatitis B Surface Antigen Negative (Negative)
[2024-09-18 18:41] LABS: HAV RESULT Negative (Negative); Hepatitis B Core IgM Result Negative (Negative)
[2024-09-18 18:52] LABS: Hepatitis C Virus Antibody Negative (Negative)
[2024-09-19 12:09] LABS: GGT 16 U/L (3-70)
== END 2024-09-18 09:08 | disposition home or self-care (01) ==
PROVIDERS: PCP Family Medicine; Visit Provider Family Medicine
DX: R74.01 Elevation of levels of liver transaminase levels (principal); I10 Essential (primary) hypertension; Z12.5 Encounter for screening for malignant neoplasm of prostate
CPT/HCPCS: 36415; 80048; 80074; 80076; 82977; 84153; 84443; 85027; G0103